=== PATIENT | male | born 1995 | race Two or more races ===

== ENCOUNTER → 2019-05-20 | Emergency (ER) | payer OTHER ==
[~2019-05-20] VITALS: Ht 177.8 cm; Wt 99.8 kg
[~2019-05-20] MED LIST: DexAMETHasone SOD PHOS 10MG/1ML VIAL INJ IV ONE; PHENYTOIN IV DILANTIN 1,000 MG in SODIUM CHL 0.9% 250 ML IV ONE; levETIRAcetam 500 MG TAB PO ONE
[2019-05-20 17:49] LABS: Basophils # (auto) 0 10 ^3/uL (0-0.2); Basophils % (auto) 0.2 % (0.0-2.0); Eosinophils # (auto) 0 10 ^3/uL (0-0.8); Eosinophils % (auto) 0.1 % (0.0-7.0); Hematocrit 44.9 % (41.0-53.0); Lymphocytes # (auto) 1.1 10 ^3/uL (0.4-5.4); Lymphocytes % (auto) 9.2 % (10.0-50.0); Mean Corpuscular Hgb Conc. 33.5 g/dL (32.0-36.0); Mean Corpuscular Volume 95.8 fL (80.0-100.0); Monocytes # (auto) 0.6 10 ^3/uL (0-1.3); Monocytes % (auto) 5.1 % (0.0-12.0); Neutrophils # (auto) 9.9 10 ^3/uL (1.6-8.6); Neutrophils % (auto) 85.4 % (37.0-80.0); Nucleated Red Blood Cells % 0.1 %; Platelet Count (auto) 186 10^3/uL (140-450); Red Blood Cells 4.68 10^6/uL (4.5-5.90); White Blood Cell 11.6 10^3/uL (4.4-10.8)
[2019-05-20 18:04] LABS: INR 1.03 (0.9-1.15)
[2019-05-20 18:06] LABS: Albumin 3.9 g/dL (3.4-5.0); Calcium 8.3 mg/dL (8.5-10.1); Potassium 3.8 mmol/L (3.5-5.1)
[2019-05-20 18:09] LABS: BUN/Creatinine Ratio 23.2; Bilirubin, Total 0.3 mg/dL (0.2-1.0); Total Protein 7.2 g/dL (6.4-8.2)
[2019-05-20 19:15] VITALS: BP 116/70
== END | disposition short-term general hospital (02) ==
LOC: ER 16:21 → EDBD 16:21
DX: G40.802 Other epilepsy, not intractable, without status epilepticus (principal); C71.1 Malignant neoplasm of frontal lobe
CPT/HCPCS: 36415; 70450; 72125; 80053; 85025; 85610; 96365; 96375; 99285; J1100; J1165; J7050

== ENCOUNTER 2019-09-09 03:45 | Emergency (ER) | payer OTHER ==
[~2019-09-09] VITALS: Ht 167.6 cm; Wt 72.6 kg
[2019-09-09 04:22] VITALS: BP 131/66
== END 2019-09-09 04:19 | disposition left against medical advice (07) ==
LOC: ER 03:45 → EDBD 03:45 → ER 04:19
DX: R51 Headache (principal); Z53.21 Procedure and treatment not carried out due to patient leaving prior to being seen by health care provider